=== PATIENT | male | born 1975 | race Native Hawaiian/Other Pacific Islander ===

== ENCOUNTER 2017-10-29 21:11 | Emergency (ER) | payer OTHER ==
[~2017-10-29] VITALS: Ht 182.9 cm; Wt 124.7 kg
[2017-10-29 21:24] VITALS: BP 150/94; TEMP 99.3
== END 2017-10-29 22:04 | disposition home or self-care (01) ==
LOC: ED 21:11
DX: N45.4 Abscess of epididymis or testis (principal)
CPT/HCPCS: 96372; 99282; J0696

== ENCOUNTER 2018-02-13 07:57 | Emergency (ER) | payer OTHER ==
[~2018-02-13] VITALS: Ht 182.9 cm; Wt 124.7 kg
[2018-02-13 08:45] LABS: PLATELET COUNT 284 K/uL (142-355)
[2018-02-13 09:31] LABS: POTASSIUM 4.3 mmol/L (3.6-5.2)
[2018-02-13 14:05] VITALS: BP 136/89; TEMP 98.6
== END 2018-02-13 14:05 | disposition home or self-care (01) ==
LOC: ED 07:57
PROVIDERS: Family Medicine
DX: R10.11 Right upper quadrant pain (principal); R73.9 Hyperglycemia, unspecified
CPT/HCPCS: 36415; 80053; 81000; 82150; 83690; 85027; 96372; 96374; 99284; J1815; J3490; Q9963

== ENCOUNTER 2021-07-25 14:35 | Emergency (ER) | payer BC ==
[~2021-07-25] VITALS: Ht 182.9 cm; Wt 127.0 kg
[2021-07-25 15:14] LABS: PLATELET COUNT 276 K/uL (142-355)
[2021-07-25 15:29] LABS: POTASSIUM 4.3 mmol/L (3.6-5.2)
[2021-07-25 18:00] VITALS: TEMP 97.5
[2021-07-25 18:25] VITALS: BP 110/54
== END 2021-07-25 18:00 | disposition home or self-care (01) ==
LOC: ED 14:35
PROVIDERS: Hospitalist
DX: R10.11 Right upper quadrant pain (principal); K31.84 Gastroparesis
CPT/HCPCS: 80053; 80320; 81000; 83690; 85027; 85610; 85730; 96360; 96361; 96365; 96375; 96376; 99284; J0696; J1170; J1885; J2405; Q9963

== ENCOUNTER 2022-06-25 12:06 | Emergency (ER) | payer OTHER ==
[~2022-06-25] VITALS: Ht 182.9 cm; Wt 127.0 kg
[2022-06-25 12:13] VITALS: TEMP 99
[2022-06-25 12:43] LABS: PLATELET COUNT 235 K/uL (142-355)
[2022-06-25 12:52] LABS: POTASSIUM 4.2 mmol/L (3.6-5.2)
[2022-06-25 14:42] VITALS: BP 109/73
== END 2022-06-25 14:43 | disposition home or self-care (01) ==
LOC: ED 12:06
PROVIDERS: Emergency Medicine
DX: R10.11 Right upper quadrant pain (principal); E11.65 Type 2 diabetes mellitus with hyperglycemia; Z79.84 Long term (current) use of oral hypoglycemic drugs
CPT/HCPCS: 36415; 80053; 81002; 82150; 83690; 84484; 85027; 96374; 96375; 99284; J2175; J2405; J3490; Q9963